=== PATIENT | male | born 1945 | race African-American/Black ===

== ENCOUNTER → 2016-06-02 | Outpatient (CLI) | payer OTHER ==
--- NOTE | ~2016-06-02 | CR63 ---
[facility] A Service of [facility] & [facility] RADIOLOGY TEXT RESULTS PATIENT: ANDREA PETERSON LOCATION: [facility] : 45 UNIT #: [id number] AGE: [address]: Giovanny Acuna MD SEX: M ORDER DR: [id number] [facility] [address] [place], [place] [address] [id number] O MR#: [id number] Acc #: [id number] NAME: ANDREA PETERSON : 1945 SEX: M STUDY DATE/TIME: 06/02/2016 14:13 UNIT: [facility] ROOM: STUDY DESCRIPTION: CR Chest 2 View Attending Physician: Giovanny Acuna M.D. Referring Physician: Giovanny Acuna M.D. Ordering Physician: Giovanny Acuna M.D. Primary Care Physician: Milady Villaseñor M.D. MEDICAL IMAGING REPORT This report is preliminary unless electronic signature is present EXAM PA and lateral chest 06/02 COMPARISON Exam is dated 04/02/2015 HISTORY Shortness of breath since May 07. FINDINGS PA and lateral views are obtained. The cardiac size is normal. Vascular pattern normal and the lungs are clear. The patient has scoliosis. CONCLUSION 1. Scoliosis. 2. No active disease. Dictated by... German Lamb M.D. THIS IS AN ELECTRONICALLY VERIFIED REPORT German Lamb M.D. at 06/03/2016 7:10 AM OMA/mayda TD: 06/02/2016 16:39 JOB #: [id number] MEDICAL IMAGING REPORT Page 1 of 1 COPY
== END | disposition home or self-care (01) ==
LOC: CRAD 13:59
DX: J18.9 Pneumonia, unspecified organism (principal); M41.9 Scoliosis, unspecified
CPT/HCPCS: 71020